=== PATIENT | female | born 1985 | race Caucasian/White ===

== ENCOUNTER 2017-01-07 21:19 | Emergency (ER) | payer OTHER ==
[2017-01-07 21:45] VITALS: BP 138/95
--- NOTE | 2017-01-07 22:02 | UC ---
Throat Pain/Nasal Stepan HPI - HPI Summary HPI Summary: complaint of cough and nasal congestion that started over 10-12 days ago cough has worsened productive cough has felt feverish and held chilss several times wheezing more often using her albuterol approx 2x day for the last week denies ear pain, sore throat, taking tylenol without much relief - History of Current Complaint Chief Complaint: UCRespiratory Stated Complaint: COUGH Time Seen by Provider: 01/07/17 21:56 Hx Obtained From: Patient Hx Last Menstrual Period: 2 WEEKS AGO - Allergies/Home Medications Allergies/Adverse Reactions: Allergies Allergy/AdvReac Type Severity Reaction Status Date / Time No Known Allergies Allergy Verified 01/07/17 21:39 Home Medications: Home Medications Acetaminophen [Mapap] 1,000 mg PO PRN 01/07/17 [History] Albuterol HFA INHALER* [Ventolin HFA Inhaler*] 01/07/17 [History] PMH/Surg Hx/FS Hx/Imm Hx Previously Healthy: Yes Respiratory History Of: Reports: Asthma - Surgical History Surgical History: None - Social History Alcohol Use: None Substance Use Type: None Smoking Status (MU): Current Every Day Smoker Type: Cigarettes Amount Used/How Often: 5 CIG/DAY Review of Systems Constitutional: Fever Skin: Negative Eyes: Negative ENT: Nasal Discharge Respiratory: Shortness Of Breath, Cough Cardiovascular: Negative Gastrointestinal: Negative Genitourinary: Negative Motor: Negative Neurovascular: Negative Musculoskeletal: Negative Neurological: Negative Psychological: Negative All Other Systems Reviewed And Are Negative: Yes Physical Exam Triage Information Reviewed: Yes Appearance: No Pain Distress, Well-Nourished Vital Signs: Initial Vital Signs Temp 97.9 F 01/07/17 21:36 Pulse 120 01/07/17 21:36 Resp 16 01/07/17 21:36 BP 138/95 01/07/17 21:36 Pulse Ox 100 01/07/17 21:36 Vital Signs Reviewed: Yes Eyes: Positive: Conjunctiva Clear ENT: Positive: Pharynx normal, TMs normal Neck: Positive: No Lymphadenopathy Respiratory: Positive: No respiratory distress, No accessory muscle use, Respiratory distress, Wheezing Cardiovascular: Positive: RRR, No Murmur, Pulses Normal Abdomen Description: Positive: Nontender, Soft Bowel Sounds: Positive: Present Musculoskeletal Exam: Normal Neurological Exam: Normal Psychological Exam: Normal Skin Exam: Normal Throat Pain/Nasal Course/Dx - Differential Dx/Diagnosis Differential Diagnosis/HQI/PQRI: Other Provider Diagnoses: asthma exacerbation Discharge - Discharge Plan Condition: Stable Disposition: HOME Prescriptions: Azithromycin TAB* [Zithromax TAB (Z-JOSÉ MIGUEL) 250 mg #6 tabs] 2 tab PO .TODAY, THEN 1 DAILY #1 josé miguel predniSONE TAB* [Deltasone TAB*] 50 mg PO DAILY #6 tab Patient Education Materials: Asthma (ED) Referrals: Elias Mcginnis MD [Primary Care Provider] - Additional Instructions: Please take antibiotic as directed Use your albuterol inhaler every 4-6 hours when needed for wheezing, shortness of breath or uncontrolled coughing. Increase fluids and rest Take acetaminophen or ibuprofen for fever or pain Please review your discharge instructions. If your symptoms do not improve please call your primary care provider or return to urgent care.
== END 2017-01-07 22:31 | disposition home or self-care (01) ==
LOC: UCEAST 21:19
DX: J45.901 Unspecified asthma with (acute) exacerbation (principal); F17.210 Nicotine dependence, cigarettes, uncomplicated
CPT/HCPCS: 99212; G0463

== ENCOUNTER → 2017-02-05 17:32 | Emergency (ER) | payer OTHER ==
[~2017-02-05 17:32] MED LIST: RHO D Immune Globulin (HUMAN)* 300 MCG = 1,500 I.U. INJ IM SCH
[2017-02-05 19:28] LABS: Hematocrit 38 % (35-47); Hemoglobin 12.4 g/dl (12.0-16.0); Mean Corpuscular HGB Conc 33 g/dl (31-36); Mean Corpuscular Hemoglobin 29 pg (27-31); Mean Corpuscular Volume 88 fL (80-97); Mean Platelet Volume 7 um3 (7.4-10.4); Red Cell Distribution Width 14 % (10.5-15); White Blood Count 10.8 10^3/ul (3.5-10.8)
[2017-02-05 19:29] LABS: Add Diff/Slide Review? Slide Review Added; Comments Flag Yes
[2017-02-05 19:42] LABS: Albumin 3.7 g/dL (3.2-5.2); BUN/Creatinine Ratio 11.9 (8-20); Calcium 8.7 mg/dL (8.6-10.3); EGFR African American 153.9 (>60); EGFR Non-African American 119.7 (>60); Globulin 2.7 g/dL (2-4); Potassium 3.4 mmol/L (3.5-5.0); Total Bilirubin 0.2 mg/dL (0.2-1.0); Total Protein 6.4 g/dL (6.4-8.9)
--- NOTE | 2017-02-05 22:12 | RAD ---
HISTORY: Vaginal bleeding, COMPARISONS: None TECHNIQUE: Multiple transverse and longitudinal ultrasound images were obtained of the pelvis using grayscale and color Doppler imaging using the endovaginal transducer. FINDINGS: UTERUS: The uterus is normal in shape, size, contour, and echotexture. ENDOMETRIUM: The endometrial stripe is smooth. The endometrium measures 0.6 cm in thickness. No intrauterine gestation is identified. There is trace amount of free fluid within the endometrial cavity. CUL-DE-SAC: There is no free fluid within the cul-de-sac. RIGHT OVARY: The right ovary measures 2 x 2.9 x 2.2 cm. There is a complex right ovarian cyst without internal vascularity measuring 1.6 x 2 x 1.5 LEFT OVARY: The left ovary measures 1.8 x 2 x 2.1 cm. BLADDER: The bladder is not well visualized. IMPRESSION: 1. NO INTRAUTERINE GESTATION IS IDENTIFIED. THE BETA-HCG IS REPORTED AT 31 WHICH IS LIKELY TOO LOW TO DETECT INTRAUTERINE 2. 2 SIMILAR COMPLEX RIGHT OVARIAN CYST. 3. THE DIFFERENTIAL INCLUDES ECTOPIC , EARLY INTRAUTERINE , MISSED . RECOMMEND CORRELATION WITH SERIAL BETA-HCG LEVELS AND FOLLOW-UP IMAGING
[2017-02-06] VITALS: BP 121/70
--- NOTE | 2017-02-06 15:39 | ED ---
Katie Cobb Auryana, scribed for Deon Young MD on 02/05/17 at 1943 . - HPI Summary HPI Summary: 31 year old female presents with spotting last night progressively worse over the night. She states that it initially started with light spotting and became more bright red. She also had abdominal cramping. PHYS THER ibuprofen 400mg last night. A0 - 5 weeks - last period December 31. Patient has consulted [facility] last week and has been instructed to call on Tuesday for US. She is currently on Submutex 1mg ( previously on Suboxone) prescribed by Dr. Shetty in [place], [place] - moved to [place] 1 year ago. PMHx is significant for asthma, and past opiate abuse but not significant for any surgeries. - History of Current Complaint Chief Complaint: EDOBProblems Stated Complaint: 5 WEEKS PREG BLEEDING Time Seen by Provider: 02/05/17 18:30 Hx Obtained From: Patient Chief Complaint: Concern for Embryonic Dem, Vaginal Bleeding Onset/Duration: Started Days Ago - last night, Still Present Timing: Constant Severity: Mild Current Severity: Mild Pain Intensity: 0 Location of Pain: Diffuse Character: Cramping Associated Signs and Symptoms: Positive: Vaginal Bleeding or Discharge, Other: - abdominal cramping - Assessment History of Ectopic : No - Allergies/Home Medications Allergies/Adverse Reactions: Allergies Allergy/AdvReac Type Severity Reaction Status Date / Time No Known Allergies Allergy Verified 02/05/17 17:59 PMH/Surg Hx/FS Hx/Imm Hx Respiratory History: Reports: Hx Asthma Infectious Disease History: No Infectious Disease History: Denies: Traveled Outside the [place] in Last 30 Days - Family History Known Family History: Positive: Hypertension, Diabetes - Social History Occupation: Employed Full-time - self employed Lives: With Family Alcohol Use: None Substance Use Type: Reports: None Smoking Status (MU): Current Every Day Smoker Type: Cigarettes Amount Used/How Often: 5 CIG/DAY Review of Systems Constitutional: Negative Negative: Fever, Chills Eyes: Negative Negative: Erythema ENT: Negative Negative: Sore Throat Cardiovascular: Negative Negative: Chest Pain Respiratory: Negative Negative: Shortness Of Breath, Cough Positive: Abdominal Pain - cramping . Negative: Vomiting, Nausea Positive: other - vaginal bleeding . Negative: dysuria, hematuria Musculoskeletal: Negative Negative: Myalgia, Edema Skin: Negative Negative: Rash Neurological: Negative, Other - no dizziness Psychological: Normal All Other Systems Reviewed And Are Negative: Yes Physical Exam - Summary Physical Exam Summary: Constitutional: Well-developed, Well-nourished, Alert. (-) Distressed Skin: Warm, Dry HENT: Eyes: Conjunctiva normal Neck: Musculoskeletal ROM normal neck. (-) JVD, (-) Stridor, (-) Tracheal deviation Cardio: Rhythm regular, rate normal, Heart sounds normal; Intact distal pulses; The pedal pulses are 2+ and symmetric. Radial pulses are 2+ and symmetric. (-) Murmur Pulmonary/Chest wall: Effort normal. (-) Respiratory distress, (-) Wheezes, (-) Rales Abd: Soft. (-) Tenderness, (-) Distension, (-) Guarding, (-) Rebound Musculoskeletal: (-) Edema Lymph: (-) Cervical adenopathy Neuro: Alert, Oriented x3, Strength normal, Cranial nerves II-XII are grossly intact. (-) Dysmetria, (-) Nystagmus, (-) Ataxia by finger to nose testing, (-) Sensory deficit. Psych: Mood and affect Normal - Physical Exam Triage Information Reviewed: Yes Vital Signs On Initial Exam: Initial Vital Signs Temp 97.1 F 02/05/17 17:56 Pulse 100 02/05/17 17:56 Resp 18 02/05/17 17:56 BP 140/58 02/05/17 17:56 Pulse Ox 100 02/05/17 17:56 Vital Signs Reviewed: Yes Diagnostics - Vital Signs Vital Signs Temp Pulse Resp BP Pulse Ox 02/05/17 17:56 97.1 F 100 18 140/58 100 - Laboratory Lab Results: Lab Results 02/05/17 02/05/17 02/05/17 Range/Units 19:17 19:17 19:17 WBC 10.8 (3.5-10.8) 10^3/ul RBC 4.30 (4.0-5.4) 10^6/ul Hgb 12.4 (12.0-16.0) g/dl Hct 38 (35-47) % MCV 88 (80-97) fL MCH 29 (27-31) pg MCHC 33 (31-36) g/dl RDW 14 (10.5-15) % Plt Count 339 (150-450) 10^3/ul MPV 7 L (7.4-10.4) um3 Neut % (Auto) 63.8 (38-83) % Lymph % (Auto) 22.3 L (25-47) % Peach % (Auto) 5.5 (1-9) % Eos % (Auto) 6.0 (0-6) % Baso % (Auto) 2.4 H (0-2) % Absolute Neuts (auto) 6.9 (1.5-7.7) 10^3/ul Absolute Lymphs (auto) 2.4 (1.0-4.8) 10^3/ul Absolute Monos (auto) 0.6 (0-0.8) 10^3/ul Absolute Eos (auto) 0.6 (0-0.6) 10^3/ul Absolute Basos (auto) 0.3 H (0-0.2) 10^3/ul Absolute Nucleated RBC 0 10^3/ul Nucleated RBC % 0 Sodium 136 (133-145) mmol/L Potassium 3.4 L (3.5-5.0) mmol/L Chloride 106 (101-111) mmol/L Carbon Dioxide 25 (22-32) mmol/L Anion Gap 5 (2-11) mmol/L BUN 7 (6-24) mg/dL Creatinine 0.59 (0.51-0.95) mg/dL Est GFR ( Amer) 153.9 (>60) Est GFR (Non-Af Amer) 119.7 (>60) BUN/Creatinine Ratio 11.9 (8-20) Glucose 106 H (70-100) mg/dL Calcium 8.7 (8.6-10.3) mg/dL Total Bilirubin 0.20 (0.2-1.0) mg/dL AST 12 L (13-39) U/L ALT 8 (7-52) U/L Alkaline Phosphatase 35 (34-104) U/L Total Protein 6.4 (6.4-8.9) g/dL Albumin 3.7 (3.2-5.2) g/dL Globulin 2.7 (2-4) g/dL Albumin/Globulin Ratio 1.4 (1-3) Beta HCG, Quant 31.05 mIU/mL Blood Type A Negative Antibody Screen Negative Result Diagrams: 02/05/17 19:17 02/05/17 19:17 Lab Statement: Any lab studies that have been ordered have been reviewed, and results considered in the medical decision making process. - Additional Comments Diagnostic Additional Comments: Transvaginal US read by radiologist - IMPRESSION: 1. NO INTRAUTERINE GESTATION IS IDENTIFIED. THE BETA-HCG IS REPORTED AT 31 WHICH IS LIKELY TOO LOW TO DETECT INTRAUTERINE 2. 2 SIMILAR COMPLEX RIGHT OVARIAN CYST. 3. THE DIFFERENTIAL INCLUDES ECTOPIC , EARLY INTRAUTERINE , MISSED . RECOMMEND CORRELATION WITH SERIAL BETA-HCG LEVELS AND FOLLOW-UP IMAGING Re-Evaluation - Re-Evaluation First Eval Re-Evaluation Time: 22:47 Comment: Discussed that this is likely a missed with a tiny possibility of ectopic . She understands that she needs to follow up with OB no later than Tuesday or Tuesday, and was told to return if she cannot return in that time. Her PCP is 4 hours away and she cannot get in to see him in that time. Course/Dx - Course Assessment/Plan: 31 year old female presents with spotting last night progressively worse over the night. She states that it initially started with light spotting and became more bright red. She also had abdominal cramping. PHYS THER ibuprofen 400mg last night. A0 - 5 weeks - last period December 31. She is currently on Submutex 1mg ( previously on Suboxone) prescribed by Dr. Shetty in [place], [place] - moved to [place] 1 year ago. Physical exam is normal. Blood work shows beta HCG of 31.05. Transvaginal ultrasound does not identify an intrauterine gestation. Discussed that this is likely a missed with a tiny possibility of ectopic . She understands that she needs to follow up with OB no later than Tuesday or Tuesday, and was told to return if she cannot return in that time. Her PCP is 4 hours away and she cannot get in to see him in that time. Pt discharged home with follow up from OB. - Differential Diagnosis/HQI/PQRI: Threatened , Ectopic , Other: - spotting early - Diagnoses Provider Diagnoses: Threatened Discharge - Discharge Plan Condition: Stable Disposition: HOME Patient Education Materials: Miscarriage (ED) Referrals: Elias Mcginnis MD [Primary Care Provider] - Kenney Marcelo MD [Medical Doctor] - As Soon As Possible (Please follow up with OB by Tuesday or Tuesday. If you cannot follow up with OB in that time, return to the ED.) Additional Instructions: RETURN TO THE EMERGENCY DEPARTMENT FOR CHANGING OR WORSENING SYMPTOMS The documentation as recorded by the Katie hernandez Auryana accurately reflects the service I personally performed and the decisions made by me, Deon Young MD.
== END | disposition home or self-care (01) ==
LOC: ED 17:32
DX: O20.0 Threatened abortion (principal); N93.9 Abnormal uterine and vaginal bleeding, unspecified; R10.84 Generalized abdominal pain; F17.210 Nicotine dependence, cigarettes, uncomplicated; Z3A.01 Less than 8 weeks gestation of pregnancy
CPT/HCPCS: 36415; 76817; 80053; 84702; 85025; 86850; 86900; 86901; 99282; J2790

== ENCOUNTER → 2017-06-09 13:54 | Emergency (ER) | payer OTHER ==
[~2017-06-09 13:54] MED LIST changes: +Famotidine IV* 10 MG/ML 2 ML (20 mg) IV SLOW PU ONE; +Ibuprofen TAB* 600 MG PO ONE; +NS 0.9% 1000 ML* 1,000 ML IV ONE; -RHO D Immune Globulin (HUMAN)* 300 MCG = 1,500 I.U. INJ IM SCH; +diPHENhydraMINE IV* 50 MG in NS 0.9% 50 ML* 50 ML IVPB ONE; +methylPREDNISolone 125 MG* 2 ML VIAL IV ONE
--- NOTE | 2017-06-09 14:14 | ED ---
Allergic Reaction/Systemic - HPI Summary HPI Summary: Patient presents with an allergic reaction after ingesting peanuts. She was able to take her epi pen and had Benadryl and Motrin both PO on arrival in which she vomited. She endorses abdominal cramping, shakiness, puffy eyes and diffuse rash. Denies SOB or difficulty breathing or swallowing. Denies fevers, sweats or chills. Denies N/V/C/D. She has never had a reaction like this in the past, but is aware she has a peanut allergy. She denies itching currently. Endorses thirst. Otherwise healthy and takes no medications. - History of Current Complaint Time Seen by Provider: 06/09/17 14:00 Hx Obtained From: Patient Hx Last Menstrual Period: 2 WEEKS AGO Onset/Duration: Sudden Onset Timing: Constant Severity Initially: Moderate Severity Currently: Moderate Pain Intensity: 4 Pain Scale Used: 0-10 Numeric Location: Discrete @ - lower mid abdomen Character: Swelling, Pruritus, Pain Aggravating Factor(s): Nothing Alleviating Factor(s): Antihistamines, Epinephrine Associated Signs And Symptoms: Positive: Abdominal Pain. Negative: Difficulty Breathing, Hoarseness, Lightheadedness, Syncope, Throat Tightening, Vomiting - Related Hx Possible Reaction To: Food - Allergies/Home Medications Allergies/Adverse Reactions: Allergies Allergy/AdvReac Type Severity Reaction Status Date / Time No Known Allergies Allergy Verified 02/05/17 17:59 PMH/Surg Hx/FS Hx/Imm Hx Previously Healthy: Yes Respiratory History: Reports: Hx Asthma - Immunization History Hx Pertussis Vaccination: No Immunizations Up to Date: Unable to Obtain/Confirm Infectious Disease History: No - Family History Known Family History: Positive: Hypertension, Diabetes - Social History Occupation: Employed Full-time Lives: With Family Alcohol Use: None Hx Substance Use: No Substance Use Type: Reports: None Substance Use Comment - Amount & Last Used: suboxone Hx Tobacco Use: Yes Smoking Status (MU): Current Every Day Smoker Type: Cigarettes Amount Used/How Often: 5 CIG/DAY Review of Systems Constitutional: Negative Negative: Fever, Chills, Fatigue, Skin Diaphoresis Eyes: Negative Negative: Photophobia, Blurred Vision, Diplopia Negative: Sore Throat, Ear Ache, Nasal Discharge Negative: Palpitations, Chest Pain Negative: Shortness Of Breath, Cough Positive: Abdominal Pain Positive: no symptoms reported, see HPI Musculoskeletal: Negative Positive: Rash - hives Neurological: Negative Psychological: Normal All Other Systems Reviewed And Are Negative: Yes Physical Exam Triage Information Reviewed: Yes Vital Signs Reviewed: Yes Appearance: Positive: Well-Appearing, Well-Nourished Skin: Positive: Warm, Skin Color Reflects Adequate Perfusion Head/Face: Positive: Normal Head/Face Inspection Eyes: Positive: EOMI, MIGUEL, Conjunctiva Clear Neck: Positive: Supple, No Lymphadenopathy Respiratory/Lung Sounds: Positive: Clear to Auscultation, Breath Sounds Present Cardiovascular: Positive: Normal, RRR, Pulses are Symmetrical in both Upper and Lower Extremities Musculoskeletal: Positive: Normal, Strength/ROM Intact Neurological: Positive: Normal, Sensory/Motor Intact, Alert, Oriented to Person Place, Time Psychiatric: Positive: Normal AVPU Assessment: Alert Re-Evaluation - Re-Evaluation First Eval Change: Unchanged - patient denies SOB or throat symptoms Second Eval Change: Improved - pain in abdomen improved with ibuprofen, still shaky Allergic Reaction Course/Dx - Course Course Of Treatment: During her course of treatment, patient is given 125mg Solumedrol, 40mg Famotadine, 50mg Benadryl. Patients symptoms have improved except for she continues to be very shaky and cold. VS stable. Tachy on arrival which has not resolved. She is observed for 4 hours post epi -pen and is ready to be discharged home. She is given a daily 50mg dose of prednisone and given atarax for any itching reaction. She is also prescribed famotadine and benadryl for continuing or rebound reaction. Discussed with patient plan and she agrees to return if symptoms become worse, or she develops any abnormal symptoms. She has an epi pen at home. On last assessment of the patient, hives have resolved and denies throat symptoms. Denies SOB and on PE, her lungs are CTA. - Diagnoses Differential Diagnosis/HQI/PQRI: Positive: Airway Obstruction, Anaphylaxis, Angioedema Provider Diagnoses: Anaphylactic reaction Discharge - Discharge Plan Condition: Stable Disposition: HOME Prescriptions: Famotidine TAB* [Pepcid 20 MG TAB*] 20 mg PO DAILY #5 tab diPHENhydraMINE PO* [Benadryl PO 50 MG CAP*] 50 mg PO BEDTIME PRN #10 cap PRN Reason: Itching hydrOXYzine HCL TAB* [Atarax 25 MG TAB*] 25 mg PO TID PRN #12 tab PRN Reason: Itching predniSONE TAB* [Deltasone TAB*] 50 mg PO DAILY #5 tab MDD 1 Patient Education Materials: Food Allergy (ED), Anaphylaxis (ED) Referrals: Elias Mcginnis MD [Primary Care Provider] - Additional Instructions: Prednisone 50mg once daily in the MORNING daily for 5 days Atarax only as needed for itching Famotadine 20mg daily for 5 days Benadryl only at bedtime for itching and allergy symptoms. Please follow up with PCP or return to the ED if any symptoms become worse
[2017-06-09 16:38] VITALS: BP 113/77
== END | disposition home or self-care (01) ==
LOC: ED 13:54
DX: T78.01XA Anaphylactic reaction due to peanuts, initial encounter (principal); R10.9 Unspecified abdominal pain; L27.2 Dermatitis due to ingested food; J45.909 Unspecified asthma, uncomplicated; F17.210 Nicotine dependence, cigarettes, uncomplicated
CPT/HCPCS: 96361; 96374; 96375; 99283; A9270-GY; J1200; J2930